=== PATIENT | female | born 1995 | race Caucasian/White ===

== ENCOUNTER → 2023-10-04 | Day surgery (SDC) | payer OTHER | END | disposition home or self-care (01) | LOC: FRADUS-SUR 10:01 | PROVIDERS: ATTEND Obstetrics & Gynecology | PROC: 0HBT3ZX Excision of Right Breast, Percutaneous Approach, Diagnostic (ICD-10-PCS; principal; 2023-10-04) | DX: D25.1 Intramural leiomyoma of uterus (principal); N63.10 Unspecified lump in the right breast, unspecified quadrant | CPT/HCPCS: 19083; 87899; 88305-TC ==